=== PATIENT | male | born 1960 ===

== ENCOUNTER → 2023-06-06 06:29 | Day surgery (SDC) | payer MEDICARE, SELFPAY ==
[2023-06-06 07:40] LABS: Glucose - Point of Care 99 mg/dl (70-99)
== END ==
LOC: GI 06:29
PROVIDERS: ATTENDING PHYSICIAN Internal Medicine Gastroenterology; FAMILY PHYSICIAN Family Medicine
DX: Z12.11 Encounter for screening for malignant neoplasm of colon (principal); D12.4 Benign neoplasm of descending colon; K63.5 Polyp of colon; K57.30 Diverticulosis of large intestine without perforation or abscess without bleeding; Z86.010 Personal history of colon polyps
CPT/HCPCS: 45385; 88305; 82962